=== PATIENT | female | born 1985 | race African-American/Black ===

== ENCOUNTER 2018-04-07 06:25 | Day surgery (SDC) | payer OTHER ==
[2018-04-01 14:20] LABS: Urine Appearance CLEAR; Urine Bilirubin NEGATIVE (NEG); Urine Blood NEGATIVE (NEG); Urine Color YELLOW; Urine Glucose NEGATIVE (NEG); Urine Protein NEGATIVE (NEG); Urine pH 6.5 (5.0-7.0)
[2018-04-01 14:25] LABS: Urine Microscopic Reflex NO UMIC
[2018-04-01 14:34] LABS: Absolute Lymphocytes (CBC) 1.5 K/uL (0.7-4.9); Absolute Monocytes 0.8 K/uL (0.1-1.3); Basophils % 1.4 % (0-1.3); Eosinophils % 11.5 % (0-4.4); Hematocrit 39.4 % (36.0-45.0); Lymphocytes % 24.7 % (15.3-44.8); MCH 32.5 pg (27.0-35.0); MCV 93.6 fL (80-100); MPV 9.8 fL (7.6-11.3); Monocytes % 12.9 % (3.3-12.3); RBC Red Blood Cell Count 4.21 M/uL (3.86-4.86)
[2018-04-07] MEDS ORDERED: Ringers Lactate 1,000 ML IV ONE ×2 (06:45→10:15)
[2018-04-07] MEDS ORDERED: SCOPOLAMINE HYDROBROMIDE PATCH TD ONE (06:45)
[2018-04-07 06:48] LABS: Specific Gravity >= 1.030 (1.005-1.030)
[2018-04-07] MEDS ORDERED: NA CHLORIDE 0.9% 1,000 ML ONE (07:10)
[2018-04-07] MEDS ORDERED: MIDAZOLAM HCL 2 MG/2 ML INJ ONE (07:10)
[2018-04-07] MEDS ORDERED: ROCURONIUM 50 MG/5 ML VIAL IV ONE (07:10)
[2018-04-07] MEDS ORDERED: FENTANYL CITR 250 MCG/5 ML ONE (07:10)
[2018-04-07] MEDS ORDERED: LIDOCAINE 2% MPF 5 ML VIAL ONE (07:10)
[2018-04-07] MEDS ORDERED: PROPOFOL 200 MG/20 ML VIAL IV ONE (07:10)
[2018-04-07] MEDS ORDERED: ONDANSETRON HCL 40 MG/20 ML VIAL ONE (07:13)
[2018-04-07] MEDS ORDERED: METHYLENE BLUE 0.5% 10 ML AMP ONE (08:59)
[2018-04-07] MEDS ORDERED: KETOROLAC 30 MG/ML INJ ONE (09:19)
[2018-04-07] MEDS ORDERED: Mastisol Adhesive Liq ONE (09:42)
[2018-04-07] MEDS: MEPERIDINE HCL 50 MG/ML AMP ONE ×6 (10:05→10:47)
[2018-04-07] MEDS ORDERED: ONDANSETRON 4 MG/2 ML VIAL ONE (11:19)
[2018-04-07] MEDS ORDERED: CODEINE 30MG/APAP 300MG TAB ONE ×2 (12:00→13:53)
--- NOTE | 2018-04-08 02:00 | OP ---
Date of Procedure: 04/07/2018 Surgeon: Madison Ellison MD Preoperative Diagnoses: Menorrhagia, dysmenorrhea, pelvic pain, and iron-deficiency anemia. Postoperative Diagnoses: Menorrhagia, dysmenorrhea, pelvic pain, iron-deficiency anemia, and bilater al tubo-ovarian adhesions. Anesthesia: General endotracheal. Procedures Performed: 1.Diagnostic hysteroscopy, dilation and curettage. 2.Diagnostic laparoscopy, bilateral salpingo-ovarian lysis, lysis of omental adhesions, and chromotu bation. Specimens: Tubo-ovarian adhesions on both sides and endometrial curettings. Complications: No complications. Drains: No drains. Patient's Condition: Stable. Findings: Uterus was anteflexed extremely. Cavity empty. Both tubal ostia were well visualized. N o intracavitary lesions. On chromotubation, both tubes appeared to be patent, and there were strong jets of blue dye from both promptly with a good fill and spill without any hydrosalpinx. There were bilateral tubo-ovarian adhesions, mostly dense adhesions, some filmy as well on the left s tiffanie from the ovary to the tube, from the ovary to the left pelvic sidewall, posterior broad ligament, and between the tube and the ovary. Then, on the right side, the tubo-ovarian adhesions were dense, fewer than on the left side, just mostly periovarian and between the ovary and the tube. There were several adhesions that were filmy on top of the uterus. These were cleared, and there were dense ad hesions of the bladder. There were dense adhesions of the omentum to the anterior abdominal wall. N o ovarian masses. The appendix appeared to be full, however, not inflamed. The liver and gallbladde r appeared to be unremarkable. All peritoneal surfaces were free of endometriosis. There was sinus in the posterior cul-de-sac without evidence of any endometriosis. No evidence of endometriosis unde r close examination of the entire pelvic cavity. Indications: The patient is a 32-year-old with all the complaints of heavy bleeding, cramping, and p elvic pain. She was evaluated with ultrasound. No clear abnormality was seen other than a small lef t ovarian cyst, which appeared to be physiological. She has had deliveries in the past x2. She desires to try to conceive pretty soon. Given the fact she has bleeding, that needs evaluation to rule out endometrial adenocarcinoma or atypia. Given that she has risk factors for this, she was consented for this. Then, diagnostic laparoscopy and chromotubation to check out and rule out any hy drosalpinges. If there is endometriosis present, then it would be excised, was discussed with the rick dugan. If there were adhesions, that they would be taken down. After she was consented for diagnost ic laparoscopy, possible endo treatment, and chromotubation, she was taken back to the OR. Description Of Procedure: After informed consent was verified, she was taken back to the OR, placed in a supine fashion on the operating table. After general anesthesia was given, she was placed in a dorsal lithotomy position. Both arms were tucked. The patient's legs placed in Garry stirrups. Pel valentina examination was performed. Uterus was anteflexed. No adnexal masses were seen. Abdomen, vulva, vagina, and perineum were prepped and draped in a sterile fashion. Hendrickson was placed to drain the bl adder and attached to a drainage bag. Speculum was placed to expose the cervix. Anterior lip was gr asped with 2 Allis clamps. Cervix was dilated at the external os with the tip of a hemostats; and us ing the SlimLine hysteroscope and normal saline as distention medium, direct hysteroscopy was perform ed with 30-degree lens in through the cervical canal and into the uterine cavity. The cavity appeare d to be empty. Both tubal ostia were well visualized. No intracavitary lesions. The scope was micha santhosh, and gentle curettage was performed. Then, the scope was replaced and thoroughly the irrigation and suction was conducted. Curettings were sent for permanent pathology. After the entire cavity wa s cleared out, then I was able to place the diagnostic VCare and fixed in place, and this area was dr escobar. A 1-cm infraumbilical incision in a semilunar fashion was placed in the area of the umbilical repair after the abdominoplasty. Then, subcutaneous tissues were incised sharply with a knife to get to the fascia. Fascia was incised in the vertical line. About 1-cm incision was made. Harry's were plac ed on each side. The fascia was . Stay sutures were placed with [address]-2 needle on each side. The peritoneum was picked up with 2 hemostats and incised with Metzenbaum scissors. The fingers were placed into the peritoneal cavity. Retractors were placed. Joaquin trocar was introduc ed under direct visualization. There were omental adhesions right inferior to the trocar placement. Site of entry was checked. No evidence of any injury to the bowel or the omentum. Upper abdominal s urface was completely unremarkable. Liver, gallbladder, stomach, and omental surfaces were all bella l. Then, a 5-mm left lower quadrant port was placed under direct vision after making a 5-mm incision on the skin with a 15-blade. We went on to place a trocar. Then, sharp scissors were used to take down the omental adhesions right at the level of the anterior abdominal wall without any significant bleeding. Once this was done, the end of the omental adhesion was checked. There was no need for an y additional hemostasis. So, went down to the pelvic cavity. A 5-mm suprapubic trocar was also plac ed under direct vision without any problems. Then, all the findings as dictated above were seen. Elmer th ureters were displaced anatomically in their locations in the pelvis. The lysis of adhesions was done with the help of sharp laparoscopic scissors. They were first picked up from the level of the o vary and then all the way to the left lateral wall. The lateral wall adhesion was cut at the level o f the lateral wall and the adhesion was cut very close to the surface opening up the ovarian surface which appeared to be covered with the adhesions. On the left side, these were all cleared up. The t ubo-ovarian adhesions were then cleared up, and they were excised, and they were handed out for perma nent pathology. There were filmy adhesions on top of the uterus, which were then taken down systemat ically with the help of the scissors at the very base. There were adhesions in the anterior cul-de-s ac that were taken down. No evidence of any endometriosis here either. On the right side, the ovary was picked up. The adhesions were taken down from the ovary to the tube. These were all cleared, a nd they were handed off for pathology. Thorough irrigation and suction of the pelvic cavity were don e about 5 times with the normal saline. The cul-de-sac sinus was well inspected with the help of 30- degree lens, and there was no evidence of any endometriosis inside it. At this point, the tubes were checked, and there was no evidence of any hydrosalpinges. They were nicely decompressed. Both of t hem were situated in a place where I could visualize the flow of the blue dye. Some methylene blue w as diluted, 10 mL in 50 cc, and 20 mL was injected through the VCare manipulator. There was an insta ntaneous fill without any distortions of the tube and spill through the fimbriated end of both tubes. The patency was confirmed. Thorough irrigation and suction were performed of the pelvic cavity. I nterceed was cut in half and wrapped around both ovaries to potentially prevent adhesions. Then, tro cars were removed. Gas was desufflated. Umbilical port was removed. The fascia was closed with the help of tag 0 Vicryl sutures. Good closure was obtained. All the skin incisions were closed with t he help of interrupted 4-0 Monocryl. The VCare as well as the Hendrickson were removed, and the patient wa s recovered from anesthesia. Instrument, needle, and sponge counts x3 were correct at the end of the case. She tolerated the procedure well, and she will follow up with me in 1 week. She was taken to the recovery in a stable condition. ZACKERY Voice ID: [id number] Report ID: [id number]
== END 2018-04-07 14:11 | disposition home or self-care (01) ==
LOC: OR 06:25
PROVIDERS: ATTEND Obstetrics & Gynecology
PROC: 0UDB7ZX Extraction of Endometrium, Via Natural or Artificial Opening, Diagnostic (ICD-10-PCS; 2018-04-07)
PROC: 0UJD8ZZ Inspection of Uterus and Cervix, Via Natural or Artificial Opening Endoscopic (ICD-10-PCS; 2018-04-07)
PROC: 0UN74ZZ Release Bilateral Fallopian Tubes, Percutaneous Endoscopic Approach (ICD-10-PCS; 2018-04-07)
PROC: 0DNU4ZZ Release Omentum, Percutaneous Endoscopic Approach (ICD-10-PCS; 2018-04-07)
PROC: 3E1P78X Irrigation of Female Reproductive using Irrigating Substance, Via Natural or Artificial Opening, Diagnostic (ICD-10-PCS; principal; 2018-04-07 07:30)
DX: N92.0 Excessive and frequent menstruation with regular cycle (principal); N94.6 Dysmenorrhea, unspecified; N73.6 Female pelvic peritoneal adhesions (postinfective); K66.0 Peritoneal adhesions (postprocedural) (postinfection); D50.9 Iron deficiency anemia, unspecified; Z88.6 Allergy status to analgesic agent; Z80.3 Family history of malignant neoplasm of breast; Z83.3 Family history of diabetes mellitus; Z82.49 Family history of ischemic heart disease and other diseases of the circulatory system
CPT/HCPCS: 36415; 81003; 81025; 85025; 86850; 86900; 86901; 88304; 88305; J2175; J2250; J2405; J7030

== ENCOUNTER 2022-01-28 18:19 | Emergency (ER) | payer SELFPAY ==
--- OUTSIDE RECORDS SUMMARY | 2022-01-28 18:21 | XMS REPORT | Continuity of Care Document ---
:1985 Author Organization [facility] t Address [address] [place] [address] Dr. Mackey [address] [place] [id number] Care Team Providers Name Role Phone Unavailable Unavailable Unavailable Problems This patient has no known problems. Allergies, Adverse Reactions, Alerts This patient has no known allergies or adverse reactions. Medications This patient has no known medications. Procedures This patient has no known procedures. Results This patient has no known results.
[2022-01-28] MEDS ORDERED: ONDANSETRON 4 MG (ODT) TAB ONE (19:48)
[2022-01-28] MEDS ORDERED: NA CHLORIDE 0.9% 1,000 ML ONE (20:12)
[2022-01-28 20:28] LABS: Urine Blood Negative (Negative); Urine Glucose Trace (Negative); Urine Protein 1+ (Negative); Urine Specific Gravity >=1.030 (1.005-1.030)
[2022-01-28 20:38] LABS: MCV 88.7 fL (80-100); RBC Red Blood Cell Count 4.74 M/uL (3.86-4.86)
[2022-01-28 20:56] LABS: Absolute Lymphocytes (CBC) 1.8 K/uL (0.7-4.9); Lymphocytes % 18.5 % (15.3-44.8); MPV 10.1 fL (7.6-11.3)
[2022-01-28 21:04] LABS: Albumin 4.3 g/dL (3.4-5.0); Bilirubin Total 0.8 mg/dL (0.2-1.0); Potassium 3.8 mmol/L (3.5-5.1); Protein, Total 10.2 g/dL (6.4-8.2)
[2022-01-28 21:47] LABS: Blood Morphology Comment NOT SEEN (NOT SEEN); Platelet Estimate ADEQ; White Blood Cell Scan OK (OK)
[2022-01-28] MEDS ORDERED: LIDOCAINE VISCOUS 2% SOLN 15 ML UDC ONE (22:51)
[2022-01-28] MEDS ORDERED: MAGNES/ALUMIN/SIMET 30ML UCUP ONE (22:51)
--- NOTE | 2022-01-28 23:15 | ER ---
Nurse's Notes [facility] Name: Sarah Barbour Age: 36 yrs Sex: Female : 1985 Arrival Date: 01/28/2022 Time: 18:21 Bed 13 Private MD: Garcia Simpson Diagnosis: Nausea with vomiting, unspecified Presentation: 01/28 19:37 Chief complaint: Patient states: NAUSEA AND VOMITING WITH HICCUPS ALL DAY, UNABLE TO bh1 KEEP ANYTHING DOWN. Coronavirus screen: Vaccine status: Patient reports receiving the 2nd dose of the covid vaccine. nausea, vomiting. Client presents with at least one sign or symptom that may indicate coronavirus-19. Standard/surgical mask placed on the client. Ebola Screen: Patient negative for fever greater than or equal to 101.5 degrees Fahrenheit, and additional compatible Ebola Virus Disease symptoms. Initial Sepsis Screen: Does the patient meet any 2 criteria? No. Patient's initial sepsis screen is negative. Does the patient have a suspected source of infection? No. Patient's initial sepsis screen is negative. Risk Assessment: Do you want to hurt yourself or someone else? Patient reports no desire to harm self or others. Onset of symptoms was January 28, 2022. 19:37 Method Of Arrival: Ambulatory [facility] 19:37 Acuity: SPARKLE 4 [facility] Triage Assessment: 19:39 General: Appears in no apparent distress. uncomfortable, Behavior is calm, cooperative, bh1 appropriate for age. Pain: Denies pain. GI: Reports nausea, vomiting. 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 - Social history:: Smoking status: Patient denies any tobacco usage or history of. Screenin:15 Abuse screen: Denies threats or abuse. Denies injuries from another. Nutritional eh3 screening: No deficits noted. Tuberculosis screening: No symptoms or risk factors identified. Fall Risk None identified. Assessment: 20:32 Reassessment: No changes from previously documented assessment. See triage assessment. eh3 General: Appears distressed, uncomfortable, Behavior is cooperative, appropriate for age. Pain: Complains of pain in abdomen Pain currently is 7 out of 10 on a pain scale. Quality of pain is described as aching, crampy, pressure, Pain began 2-3 days ago. Is continuous, Also complains of nausea. Neuro: Level of Consciousness is awake, alert, obeys commands, Oriented to person, place, time, situation. Cardiovascular: Capillary refill < 3 seconds Patient's skin is warm and dry. Respiratory: Airway is patent Respiratory effort is even, unlabored. GI: Abdomen is round non-distended, Reports lower abdominal pain, upper abdominal pain, cramping, gaseousness, intolerance of fluids, intolerance of food, nausea, vomiting. : No signs and/or symptoms were reported regarding the genitourinary system. EENT: No signs and/or symptoms were reported regarding the EENT system. Derm: No signs and/or symptoms reported regarding the dermatologic system. Musculoskeletal: No signs and/or symptoms reported regarding the musculoskeletal system. Vital Signs: 19:37 BP 104 / 72; Pulse 69; Resp 18; Temp 97.7(TE); Pulse Ox 100% on R/A; Weight 95.25 kg; bh1 Height 5 ft. 5 in. (165.10 cm); Pain 0/10; 20:15 BP 126 / 68; Pulse 63; Resp 20; Pulse Ox 100% on R/A; Pain 7/10; eh3 21:15 BP 115 / 75; Pulse 69; Resp 18; Pulse Ox 100% on R/A; eh3 22:15 BP 109 / 80; Pulse 62; Resp 18; Pulse Ox 100% on R/A; Pain 0/10; eh3 23:15 BP 105 / 73; Pulse 62; Resp 16; Pulse Ox 100% on R/A; eh3 19:37 Body Mass Index 34.95 (95.25 kg, 165.10 cm) [facility] ED Course: 18:21 Patient arrived in ED. mr 18:21 Garcia Simpson DO is Private Physician. mr 18:50 Amber Zur[facility]C [facility]. kb 18:50 oRbert Morales MD is Attending Physician. kb 19:39 Triage completed. [facility] 19:39 Arm band placed on right wrist. bh1 20:00 Isabel Armstrong is Primary Nurse. eh3 20:15 Patient has correct armband on for positive identification. Bed in low position. Call eh3 light in reach. Side rails up X2. Client placed on continuous cardiac and pulse oximetry monitoring. NIBP monitoring applied. Door closed. Noise minimized. Lights dimmed. Warm blanket given. Pillow given. 20:15 Inserted saline lock: 20 gauge in right antecubital area, using aseptic technique. eh3 Blood collected. 20:38 CBC with Diff Sent. eh3 20:38 CMP Sent. eh3 20:38 Lipase Sent. eh3 21:53 No provider procedures requiring assistance completed. eh3 23:35 IV discontinued, intact, bleeding controlled, No redness/swelling at site. Pressure eh3 dressing applied. Administered Medications: 19:41 Drug: Ondansetron 4 mg Route: PO; 1 20:20 Drug: NS 0.9% 1000 ml Route: IV; Rate: 1 bolus; Site: right antecubital; eh3 23:07 Follow up: IV Intake: 1000ml eh3 23:36 Follow up: Response: No adverse reaction; IV Intake: 1000ml eh3 22:48 Drug: GI Cocktail without - (Maalox Suspension 30 ml, Lidocaine Liquid 2 % 15 eh3 ml) Route: PO; 23:07 Follow up: Response: Nausea is increased; Vomiting increased eh3 23:17 Drug: Zofran (Ondansetron) 4 mg Route: IVP; Site: right antecubital; eh3 23:35 Follow up: Response: No adverse reaction eh3 Medication: 21:53 VIS not applicable for this client. eh3 Intake: 23:07 IV: 1000ml; Total: 1000ml. eh3 23:36 IV: 1000ml; Total: 2000ml. eh3 Outcome: 23:14 Discharge ordered by . jesus 23:36 Discharged to home ambulatory. eh3 23:36 Condition: stable 23:36 Discharge instructions given to patient, Instructed on discharge instructions, follow up and referral plans. medication usage, Demonstrated understanding of instructions, follow-up care, medications, Prescriptions given X 1. 23:37 Patient left the ED. eh3 Signatures: Amber Zurita, MONET-C AGRICULTURE SCIENCE TEACHER-Ckchris De La FuenteaSamantha Isabel Duvall eh3 Dinorah Staton RN RN bh1
--- NOTE | 2022-01-28 23:15 | EDPHYS ---
Physician Documentation [facility] Name: Sarah Barbour Age: 36 yrs Sex: Female : 1985 Arrival Date: 01/28/2022 Time: 18:21 Bed 13 Private MD: [facility] ED Physician Robert Morales HPI: 01/28 23:12 This 36 yrs old Black Female presents to ER via Ambulatory with complaints of Vomiting. kb 23:12 The patient presents to the emergency department with nausea, vomiting. Onset: The kb symptoms/episode began/occurred 5 day(s) ago. Possible causes: unknown. The symptoms are aggravated by nothing. The symptoms are alleviated by nothing. Associated signs and symptoms: Pertinent positives: nausea, vomiting, Hiccups. Severity of symptoms: At their worst the symptoms were moderate in the emergency department the symptoms are unchanged. The patient has not experienced similar symptoms in the past. The patient has not recently seen a physician. Patient reports nausea and vomiting since with intermittent hiccups. Denies fever chills body aches. Denies abdominal pain, diarrhea. States she came in today because she is unable to tolerate p.o. intake.. 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 - Social history:: Smoking status: Patient denies any tobacco usage or history of. ROS: 23:11 Constitutional: Negative for fever, chills, and weight loss. kb 23:11 Abdomen/GI: Positive for nausea and vomiting, Negative for abdominal pain, diarrhea. 23:11 All other systems are negative. Exam: 23:11 Constitutional: This is a well developed, well nourished patient who is awake, alert, kb and in no acute distress. Head/Face: Normocephalic, atraumatic. ENT: Moist Mucous membranes Cardiovascular: Regular rate and rhythm with a normal S1 and S2. No gallops, murmurs, or rubs. No pulse deficits. Respiratory: Respirations even and unlabored. No increased work of breathing. Talking in full sentences Abdomen/GI: Soft, non-tender. No distention Skin: Warm, dry with normal turgor. Normal color. MS/ Extremity: Pulses equal, no cyanosis. Neurovascular intact. Full, normal range of motion. Neuro: Awake and alert, GCS 15, oriented to person, place, time, and situation. Moves all extremities. Normal gait. Psych: Awake, alert, with orientation to person, place and time. Behavior, mood, and affect are within normal limits. Vital Signs: 19:37 BP 104 / 72; Pulse 69; Resp 18; Temp 97.7(TE); Pulse Ox 100% on R/A; Weight 95.25 kg; 1 Height 5 ft. 5 in. (165.10 cm); Pain 0/10; 20:15 BP 126 / 68; Pulse 63; Resp 20; Pulse Ox 100% on R/A; Pain 7/10; eh3 21:15 BP 115 / 75; Pulse 69; Resp 18; Pulse Ox 100% on R/A; eh3 22:15 BP 109 / 80; Pulse 62; Resp 18; Pulse Ox 100% on R/A; Pain 0/10; eh3 23:15 BP 105 / 73; Pulse 62; Resp 16; Pulse Ox 100% on R/A; eh3 19:37 Body Mass Index 34.95 (95.25 kg, 165.10 cm) [facility] MDM: 19:44 Patient medically screened. kb 23:10 Data reviewed: vital signs, nurses notes. Data interpreted: Pulse oximetry: on room air kb is 100 %. Interpretation: normal. Counseling: I had a detailed discussion with the patient and/or guardian regarding: the historical points, exam findings, and any diagnostic results supporting the discharge/admit diagnosis, lab results, the need for outpatient follow up, a family practitioner, to return to the emergency department if symptoms worsen or persist or if there are any questions or concerns that arise at home. ED course: Patient tolerated p.o. intake. Patient reports decreased nausea after treatment. Hiccups resolved. No abdominal tenderness upon exam.. 01/28 19:45 Order name: CBC with Diff; Complete Time: 22:00 kb 01/28 19:45 Order name: CMP; Complete Time: 21:14 kb 01/28 19:45 Order name: Lipase; Complete Time: 21:14 kb 01/28 20:28 Order name: Urine Dipstick-Ancillary; Complete Time: 20:33 EDMS 01/28 21:47 Order name: CBC Smear Scan; Complete Time: 22:00 EDMS 01/28 19:45 Order name: IV Saline Lock; Complete Time: 20:38 kb 01/28 19:45 Order name: Labs collected and sent; Complete Time: 20:38 kb 01/28 19:45 Order name: Urine Dipstick-Ancillary (obtain specimen); Complete Time: 20:30 kb 01/28 19:45 Order name: Urine Test (obtain specimen); Complete Time: 20:30 kb 01/28 22:00 Order name: PO challenge; Complete Time: 22:38 kb Administered Medications: 19:41 Drug: Ondansetron 4 mg Route: PO; bh1 20:20 Drug: NS 0.9% 1000 ml Route: IV; Rate: 1 bolus; Site: right antecubital; eh3 23:07 Follow up: IV Intake: 1000ml eh3 23:36 Follow up: Response: No adverse reaction; IV Intake: 1000ml eh3 22:48 Drug: GI Cocktail without - (Maalox Suspension 30 ml, Lidocaine Liquid 2 % 15 eh3 ml) Route: PO; 23:07 Follow up: Response: Nausea is increased; Vomiting increased eh3 23:17 Drug: Zofran (Ondansetron) 4 mg Route: IVP; Site: right antecubital; eh3 23:35 Follow up: Response: No adverse reaction eh3 Disposition Summary: 01/28/22 23:14 Discharge Ordered Location: Home kb Condition: Stable kb Diagnosis - Nausea with vomiting, unspecified kb Followup: kb - With: Emergency Department - When: As needed - Reason: Worsening of condition Followup: kb - With: Private Physician - When: 2 - 3 days - Reason: Recheck today's complaints, Continuance of care, Re-evaluation by your physician Discharge Instructions: - Discharge Summary Sheet kb - Nausea and Vomiting, Adult, [id number] kb Forms: - Medication Reconciliation Form kb - Thank You Letter kb - Antibiotic Education kb - Prescription Opioid Use kb Prescriptions: - ondansetron 4 mg Oral tablet,disintegrating - place 1 tablet by TRANSLINGUAL route every 6 hours As needed; 12 tablet; kb Refills: 0, Product Selection Permitted Signatures: Dispatcher [employer] EDMS Amber Zurita, MONET-C Daya Burr, RN RN ld1 Isabel Armstrong 3 Dinorah Staton RN RN bh1 Corrections: (The following items were deleted from the chart) 23:11 23:10 ED course: Patient tolerated p.o. intake. Patient reports decreased nausea after kb treatment. Hiccups resolved.. kb
[2022-01-28] MEDS ORDERED: ONDANSETRON 4 MG/2 ML VIAL ONE (23:22)
[2022-01-29 00:22] VITALS: TEMP 97.7; O2SAT 100
[2022-01-29 00:32] VITALS: BP 105/73
== END 2022-01-28 23:37 | disposition home or self-care (01) ==
LOC: ER 18:19
DX: R11.2 Nausea with vomiting, unspecified (principal)
CPT/HCPCS: 36415; 80053; 81003; 83690; 85025; 96374; 99284; J2405; J7030; Q0162

== ENCOUNTER 2022-05-06 08:19 | Emergency (ER) | payer SELFPAY ==
--- OUTSIDE RECORDS SUMMARY | 2022-05-06 08:33 | XMS REPORT | Continuity of Care Document ---
:1985 Author Organization [facility] t Address [address] [place] [place] [address] Care Team Providers Name Role Phone Garcia Simpson Primary Care Physician Garcia Simpson Attending Clinician Unavailable CAROLIN BOLIVAR Attending Clinician Unavailable Monserrat Barkley RN Attending Clinician Unavailable DEWAYNE HENRY Attending Clinician Unavailable Lola Gary Attending Clinician Alfred Carmen DO Attending Clinician Dewayne Henry MD Attending Clinician NICO LONGORIA Attending Clinician Unavailable Nico Longoria MD Attending Clinician DEWAYNE HENRY Admitting Clinician Unavailable Dewayne Henry MD Admitting Clinician NICO LONGORIA Admitting Clinician Unavailable Problems Condition Condition Condition Status Onset Resolution Last Treating Co mments Source Name Details Category Date Date Treatment Clinician Date Intractabl Intractabl Disease Active U nivers e vomiting e vomiting 7-30 it y of with with 00:00: [place] nausea, nausea, 00 Medical unspecifie unspecifie Br anch d vomiting d vomiting type type Obesity Obesity Disease Active Univers (BMI (BMI 7-30 ity of 30-39.9) 30-39.9) 00:00: [place] [address] Medical Branch No known No known Disease Unive rs active active ity of problems problems [facility] Allergies, Adverse Reactions, Alerts Allergy Allergy Status Severity Reaction(s) Onset Inactive Treating Comm ents Source Name Type Date Date Clinician NO KNOWN Drug Active Univers ALLERGIE Class ity of S [facility] Social History Social Habit Start Date Stop Date Quantity Comments Source History of Passive smoker University of tobacco use [facility] Exposure to 2022-01-23 2022-02-02 Not sure [facility] SARS-CoV-2 00:00:00 19:49:00 [facility] [place] (event) [place] Tobacco use and 2022-02-02 2022-02-02 Smokeless tobacco Un iversity of exposure 00:00:00 00:00:00 non-user [facility] Education 2022-02-02 2022-02-02 21 University of 00:00:00 00:00:00 [facility] Sex Ass[birth year] At [birth year] Universit y of 00:00:00 00:00:00 [facility] Smoking Status Start Date Stop Date Source Tobacco [facility] Never smoked tobacco [facility] Medications Ordered Filled Start Stop Current Ordering Indication Dosage Frequency Signature Comments Components Source Medication Medication Date Date Medication? Clinician (SIG) Name Name polyethylen 2021- Yes [id number] 17g Take 1 Univers e glycol 02-08 Packet by ity o f 3350 17 00:00: 04:59 mouth in [place] gram powder 00 :[address] [facility] for 15 days. polyethylen 2021- Yes [id number] 17g Take 1 Univers e glycol 02-08 Packet by ity o f 3350 17 00:00: 04:59 mouth in [place] gram powder 00 :00 the [facility] morning [place] for 15 days. potassium 2021- No 10meq 10 mEq, IV Univers chloride in 02-07 Piggyback, i ty of water 10 18:30: 18:30 ONCE, 1 [place] mEq/100 mL 00 :00 dose, On Medic al RTU 10 mEq Patt 02/07/22 [facility] at 1330, Administer over 60 Minutes, 100 mL potassium 2021- No 10meq 10 mEq, IV Univers chloride in 02-07 Piggyback, i ty of water 10 13:00: 17:15 Q1H, 4 [place] mEq/100 mL 00 :10 doses, Medical RTU 10 mEq First dose Bra nch on Fri02/07/22 at 0800, Last dose on Fri02/07/22 at 1100, Administer over 60 Minutes, 100 mL chlorproMAZ Yes [id number] 25mg Take 1 Univers INE 25 mg 8-04 tablet by ity o f tablet 00:00: mouth 3 [place] 00 (three) Medical times Branch daily as needed (hiccups). proMETHazin Yes [id number] 25mg Take 1 Univers e 25 mg 8-04 tablet by ity of tablet 00:00: mouth [place] 00 every 4 Medical (four) Branch hours as needed for N/V unresponsi ve to Ondansetro n. chlorproMAZ Yes [id number] 25mg Take 1 Univers INE 25 mg 8-04 tablet by ity o f tablet 00:00: mouth 3 [place] 00 (three) Medical times Branch daily as needed (hiccups). proMETHazin Yes [id number] 25mg Take 1 Univers e 25 mg 8-04 tablet by ity of tablet 00:00: mouth [place] 00 every 4 Medical (four) Branch hours as needed for N/V unresponsi ve to Ondansetro n. KCL 2021- No 40meq 40 mEq, Univers (KLOR-CON 02-06 Oral, ity of M20) tablet 15:15: 15:44 ONCE, 1 [place] 40 mEq 00 :00 dose, On Medical Fri02/06/22 Branch at 1015, Routine polyethylen Yes 17g 17 g, Unive rs e glycol 02-06 Oral, ity of 3350 powder 14:45: DAILY, [place] 17 g 00 First dose Medical on Fri Branch 02/06/22 at 0945, Until Discontinu ed, Routine KCL 2021- No 40meq 40 mEq, Univers (KLOR-CON 02-05 Oral, ity of M20) tablet 14:30: 14:32 ONCE, 1 [place] 40 mEq 00 :00 dose, On Medical 02/05/22 Branch at 0930, Routine lactated 2021- No 1000mL at 150 Univ ers ringers IV 02-03 08-03 mL/hr, ity of infusion 15:00: 14:12 1,000 mL, [place] as 1,000 mL 00 :59 IV Medical Infusion, Branch CONTINUOUS , Starting on [place] 02/03/22 at 1000, Until Fri02/06/22 at 0912, Routine enoxaparin Yes 40mg 40 mg, Unive rs (LOVENOX) 02-03 Subcutaneo ity of injection 14:00: [place], [place]ILY, [place] 40 mg 00 First dose Medical on [facility] 02/03/22 at 0900, Until Discontinu ed, Routine chlorproMAZ Yes 25mg 25 mg, Univ ers INE 02-03 Oral, ity of (THORAZINE) 13:31: TIDPRN, [place] tablet 25 13 Starting Medica l mg on [facility] 02/03/22 at 0831, Until Discontinu ed, Routine, hiccups proMETHazin 2021- No 12.5mg 12.5 mg, Univers e 02-03 IV ity of (PHENERGAN) 03:36: 13:39 Piggyback, [place] 12.5 mg in 13 :00 Q4HPRN, Medica l NaCl 0.9% Starting Branch (NS) 50 mL on [facility] IV 02/02/22 at piggyback 2236, Until [place] 02/03/22 at 0839, Routine, N/V unresponsi ve to Ondansetro n NaCl 0.9% 2021- No 1000mL at 125 Uni vers (NS) IV 02-03 0731 mL/hr, IV ity of infusion 03:15: 13:46 Infusion, [place] 1,000 mL 00 :19 CONTINUOUS Medic al , Starting Branch on [facility] 02/02/22 at 2215, Until [place] 02/03/22 at 0846, Routine ondansetron Yes 4mg 4 mg, Slow Univers (ZOFRAN 02-03 IV Push, ity of (PF)) 03:04: Q6HPRN, [place] injection 4 27 Starting Medi maikel mg on Sat Branch 02/02/22 at 2204, Until Discontinu ed, Routine, Nausea and Vomiting (N/V) HYDROcodone Yes 1{tbl} 1 tablet, Univers -acetaminop 02-03 Oral, ity of hen (NORCO) 03:04: Q6HPRN, [place] 10-325 mg 22 Starting Medica l tablet 1 on Sat Branch tablet 02/02/22 at 2204, Until Discontinu ed, Routine, Pain (scale 7-10) acetaminoph Yes 650mg 650 mg, Un dima en 02-03 Oral, ity of (TYLENOL) 03:04: Q6HPRN, [place] tablet 650 16 Starting Medic al mg on Sat Branch 02/02/22 at 2204, Until Discontinu ed, Routine, Pain (scale 1-3) NaCl 0.9% 2021- No 1000mL at 999 Uni vers (NS) bolus 02-02 mL/hr, ity of infusion 23:30: 00:27 1,000 mL, [place] 1,000 mL 00 :00 IV Medical Infusion, Branch ONCE, 1 dose, On 02/02/22 at 1830, STAT haloperidol 2021- No 2.5mg 2.5 mg, U nivers lactate 02-02 Intravenou ity o f (HALDOL) 22:30: 22:36 s, ONCE, 1 [place] injection 00 :00 dose, On Medica l 2.5 mg [facility] Branch 02/02/22 at 1730, STAT famotidine 2021- No 20mg 20 mg, Univ ers (PEPCID 02-02 Slow IV ity of (PF)) 22:30: 22:37 Push, [place] injection 00 :00 ONCE, 1 Medical 20 mg dose, On Branch 02/02/22 at 1730, MARYANNE iopamidol 2021- No [id number] 60mL 60 mL, U nivers (ISOVUE 01-30 Intravenou ity o f 370-500 mL) 03:15: 03:15 s, ONCE, 1 [place] injection 00 :00 dose, On Medica l 60 mL Tue Branch 01/29/22 at 2230, Routine NaCl 0.9% 2021- No 1000mL at 999 Uni vers (NS) bolus 01-30 mL/hr, ity of infusion 03:15: 04:37 1,000 mL, [place] 1,000 mL 00 :00 IV Medical Infusion, Branch ONCE, 1 dose, On Fri01/29/22 at 2215, STAT proMETHazin 2021- No 25mg 25 mg, IV Univers e 01-30 Piggyback, ity of (PHENERGAN) 03:15: 03:06 ONCE, 1 [place] 25 mg in 00 :00 dose, On Medical NaCl 0.9% Fri Branch (NS) 50 mL 01/29/22 at IV 2215, MARYANNE piggyback pantoprazol 2021- No 40mg 40 mg, Uni vers e 01-30 Slow IV ity of (PROTONIX) 02:15: 02:16 Push, [place] injection 00 :00 ONCE, 1 Medical 40 mg dose, On Branch e 01/29/22 at 2115 maalox:diph 2021- No 15mL 15 mL, Uni vers enhydrAMINE 01-30 Oral, ity of :lidocaine 02:15: 02:17 ONCE, 1 [place] 2 % viscous 00 :00 dose, On Medi maikel 1:1:1 Tue Branch (FIRST-MOUT 01/29/22 at [facility]) 2114, oral Routine suspension 15 mL ondansetron 2021- No 4mg 4 mg, Slow Univers (ZOFRAN 01-30 IV Push, ity of (PF)) 02:15: 02:17 ONCE, 1 [place] injection 4 00 :00 dose, On Medi maikel mg e Branch 01/29/22 at 2115, MARYANNE dicyclomine 2021-0 Yes [id number] 20mg Take 1 Univers 20 mg 7-26 tablet by ity of tablet 00:00: mouth [place] 00 every 6 Medical (six) Branch hours as needed for Abdominal pain. pantoprazol 2021-0 Yes [id number] 40mg Take 1 Univers e 7-26 tablet by ity of (PROTONIX) 00:00: mouth in [place] 40 mg EC 00 the Medical tablet morning. Branch proMETHazin Yes [id number] 25mg Take 1 Univers e 25 mg 7-26 tablet by ity of tablet 00:00: mouth [place] 00 every 6 Medical (six) Branch hours as needed for N/V unresponsi ve to Ondansetro n. dicyclomine 2021- No [id number] 20mg Take 1 Univers 20 mg 7-26 07-30 tablet by ity of tablet 00:00: 00:00 mouth [place] 00 :00 every 6 Medical (six) Branch hours as needed for Abdominal pain. pantoprazol 2021- No [id number] 40mg Take 1 Univers e 7-26 07-30 tablet by ity of (PROTONIX) 00:00: 00:00 mouth [place] 40 mg EC 00 :00 the Medical tablet morning. Branch proMETHazin 2021- No [id number] 25mg Take 1 Univers e 25 mg 7-26 07-30 tablet by ity of tablet 00:00: 00:00 mouth [place] 00 :00 every 6 Medical (six) Branch hours as needed for N/V unresponsi ve to Ondansetro n. acetaminoph Yes [id number] 1{tbl} Take 1 Univers en-codeine 1-08 tablet by ity of 300-30 mg 00:00: mouth [place] tablet 00 every 4 Medical (four) Branch hours as needed for Pain (scale 7-10). ondansetron Yes [id number] 4mg Take 1 Univers 4 mg 1-08 tablet by ity of disintegrat 00:00: mouth [place] ing tablet 00 every 8 Medica l (eight) Branch hours as needed for Nausea and Vomiting (N/V). acetaminoph 2021- No [id number] 1{tbl} Take 1 Univers en-codeine 1-08 07-30 tablet by ity of 300-30 mg 00:00: 00:00 mouth [place] tablet 00 :00 every 4 Medical (four) Branch hours as needed for Pain (scale 7-10). ondansetron 2021- No [id number] 4mg Take 1 Univers 4 mg 1-08 07-30 tablet by ity of disintegrat 00:00: 00:00 [place] tablet 00 :00 every 8 Medica l (eight) Branch hours as needed for Nausea and Vomiting (N/V). Immunizations Ordered Filled Immunization Date Status Comments Sour e Immunization Name Name SARS-COV-2 COVID-19 2020-11-26 Completed Unive rsity of MODERNA VACCINE 00:00:00 [place] Med ical Branch SARS-COV-2 COVID-19 2020-11-26 Completed Unive rsity of MODERNA VACCINE 00:00:00 [facility] ical Branch SARS-COV-2 COVID-19 2020-10-27 Completed Unive rsity of MODERNA VACCINE 00:00:00 [facility] ical Branch SARS-COV-2 COVID-19 2020-10-27 Completed Unive rsity of MODERNA VACCINE 00:00:00 [facility] Vital Signs Vital Name Observation Time Observation Value Comments Source Systolic blood 2022-02-07 16:11:00 110 mm[Hg] Univer sity of pressure [facility] Diastolic blood 2022-02-07 16:11:00 68 mm[Hg] Unive rsity of pressure [facility] Heart rate 2022-02-07 16:11:00 71 /min [facility] Body temperature 2022-02-07 16:11:[address] Respiratory rate 2022-02-07 16:11:00 16 /min [facility] Oxygen saturation in 2022-02-07 16:11:00 98 /min [facility] Arterial blood by [facility] [place] [facility] Pulse oximetry Branch Body weight 2022-02-07 08:20:00 89.495 kg [facility] BMI 2022-02-07 08:20:00 32.83 kg/m2 [facility] Body height 2022-02-03 00:53:00 165.1 cm [facility] Diastolic blood 2022-01-30 04:33:00 90 mm[Hg] Unive rsity of pressure [facility] Heart rate 2022-01-30 04:33:00 71 /min [facility] Respiratory rate 2022-01-30 04:33:00 16 /min [facility] Oxygen saturation in 2022-01-30 04:33:00 100 /min University of Arterial blood by [facility] [place] [facility] Pulse oximetry Branch Systolic blood 2022-01-30 04:33:00 140 mm[Hg] [facility] of pressure [facility] Body temperature 2022-01-30 01:31:00 36.72 Tiesha [facility] Body height 2022-01-30 01:31:00 165.1 cm [facility] Body weight 2022-01-30 01:31:00 95.255 kg [facility] BMI 2022-01-30 01:31:00 34.95 kg/m2 [facility] Procedures Procedure Date / Time Performing Clinician Source Performed LIPASE 2022-02-07 09:49:[address] [facility] BASIC METABOLIC PANEL 2022-02-07 09:49:00 Pavel Obrien [facility] (NA, K, CL, CO2, GLUCOSE, Medica l Branch BUN, CREATININE, CA) CBC WITH DIFF 2022-02-07 09:49:[address] [facility] BASIC METABOLIC PANEL 2022-02-06 07:52:00 Lola Carroll [facility] (NA, K, CL, CO2, GLUCOSE, Medica l Branch BUN, CREATININE, CA) LIPASE 2022-02-05 09:31:00 Lola Carroll [facility] BASIC METABOLIC PANEL 2022-02-05 09:31:00 Lola Carroll [facility] (NA, K, CL, CO2, GLUCOSE, Medica l Branch BUN, CREATININE, CA) CBC WITH DIFF 2022-02-05 09:31:00 Lola Carroll [facility] US ABDOMEN COMPLETE 2022-02-05 03:46:00 Pavel Obrien [facility] LIPASE 2022-02-04 16:06:00 Carl [facility] MAGNESIUM 2022-02-04 16:06:00 [facility] HEPATIC FUNCTION PANEL 2022-02-04 16:06:00 [facility] ([id number] (ALB,T.PRO,BILI Medical Branch T,BU/BC,ALT,AST,ALK PHOS) BASIC METABOLIC PANEL 2022-02-04 16:06[facility]00 [facility] (NA, K, CL, CO2, GLUCOSE, Medica l Branch BUN, CREATININE, CA) CBC WITH DIFF 2022-02-04 16:06:00 [facility]OLIC PANEL 2022-02-03 09:59:00 [facility] (NA, K, CL, CO2, GLUCOSE, Medica l Branch BUN, CREATININE, CA) LIPID PANEL ([id number])(TOTAL 2022-02-03 09:59:00 [facility] CHOLESTEROL, [facility] TRIGLYCERIDES, HDL) CBC WITH DIFF 2022-02-03 09:59:00 [facility] COVID-19 (ID NOW RAPID 2022-02-02 23:40:00 Lola Hendrickson [facility] TESTING) Medical Branch LAB ONLY COVID 2022-02-02 23:40:00 Lola Hendrickson [facility] INTERPRETATION Medical Branch LIPASE 2022-02-02 22:39:00 Lola [facility] COMP. METABOLIC PANEL 2022-02-02 22:39:00 Lola Hendrickson [facility] ([id number]) Medical Branch CBC WITH DIFF 2022-02-02 22:39:00 Lola Hendrickson [facility] NOTICE OF PRIVACY 2022-02-02 22:00:56 Doctor Marcela, [facility] PRACTICES [place] [facility] CONSENT/REFUSAL FOR 2022-02-02 22:00:44 Doctor Marcela [facility] DIAGNOSIS AND TREATMENT [place] [facility] CONSENT/REFUSAL FOR 2022-02-02 21:44:43 Doctor Marcela [facility] DIAGNOSIS AND TREATMENT [place] [facility] CT ABDOMEN PELVIS W 2022-01-30 03:21:00 Nico Longoria [facility] CONTRAST Medical Branch POCT TEST 2022-01-30 02:26:00 Nico Longoria [facility] LIPASE 2022-01-30 02:16:[address] [facility] COMP. METABOLIC PANEL 2022-01-30 02:16:00 Nico Longoria [facility] ([id number]) [facility] CBC WITH DIFF 2022-01-30 02:16:[address] [facility] URINALYSIS 2022-01-30 02:16:[address] [facility] COVID-19 (ID NOW RAPID 2022-01-30 02:16:00 Nico Longoria [facility] TESTING) [facility] Encounters Start End Encounter Admission Attending Care Care Encounter Source Date/Time Date/Time Type Type Clinicians Facility Department ID 2022-04-18 [facility] [id number] Common 15:48:03 [facility] 2022-04-15 Outpatient Simpson, [facility]MLC [facility] [id number] Common 08:13:02 [facility] [id number] [facility] 2022-03-19 Outpatient Simpson, STLC [facility] [id number] Common 13:19:04 [facility] 2022-02-13 2022-02-13 Emergency E OSMEL, MHBL MED [id number] BL 16:06:00 23:05:00 SAB 2022-02-08 2022-02-08 Transition [facility] [place] [id number] Univers 00:00:00 00:00:00 of Care Monserrat LEVINE [id number] i ty of [id number] [address] Branch 2022-02-02 2022-02-07 Inpatient X CARL [facility] [id number] Univers 16:46:00 17:30:[address] [facility] 2022-02-02 2022-02-07 Hospital Lola Hendrickson [facility] [id number] Univers 16:46:00 17:30:00 Encounter Alfred Carmen [id number] ity Dewayne Delarosa 4.2.7.2.686 [facility] [id number] [place] [address]34[address] Branch 2022-01-29 2022-01-29 Emergency X [facility] ERT [id number] Univers 20:35:00 23:37:[facility] 2022-01-[address] [facility] [id number] Univers 20:35:00 23:37:00 Nico SHEPPARD [id number] ity suni MARQUES 4.2.7.2.686 [facility] [id number] [address] Results Test Description Test Time Test Comments Results Result Comments Source BASIC METABOLIC PANEL (NA, K, CL, CO2, GLUCOSE, BUN, 2022-02 12:12:35 CREATININE, CA) Test Item Value Reference Range Interpretation Comme nts NA (test code = 6879847758) 135 mmol/L 135-145 K (test code = 2152142151) 3.3 mmol/L 3.5-5 L CL (test code = 9826082554) 101 mmol/L 98-108 CO2 TOTAL (test code = 2957788472) 24 mmol/L 23-31 AGAP (test code = 8511254397) 2-16 BUN (test code = 0840006845) 5 mg/dL 7-23 L GLUCOSE (test code = 3112710495) 103 mg/dL 70-110 CREATININE (test code = 0.69 mg/dL 0.5-1.04 8323631235) CALCIUM (test code = 7465096067) 8.5 mg/dL 8.6-10.6 L eGFR (test code = 5211665492) mL/min/1.73m2 MICHAEL (test code = MICHAEL) Association of Glomerular Filtration Rate (GFR) and Staging of Kidney Disease* + +-------- + ------+| GFR (mL/min/1.73 m2) ?| With Kidney Damage ?| ?Without Kidney Damage+ +-- + +| ?>90 ?| ?Stage one ?| ? Normal ?+ +------- + -------+| ?60-89 ?| ?Stage two ?| ? Decreased GFR ? + +-------- + ------+| ?30-59 ?| ?Stage three ?| ? Stage three ? + +-------- + ------+| ?15-29 ?| ?Stage four ? | ? Stage four ?+ +------- + -------+| ?<15 (or dialysis) ? ?| ?Stage five ? | ? Stage five ?+ +------- + -------+ *Each stage assumes the associated GFR level has been in effect for at least three months. ?Stages 1 to 5, with or without kidney disease, indicate chronic kidney disease. Notes: Determination of stages one and two (with eGFR >59mL/min/1.73 m2) requires estimation of kidney damage for at least three months as defined by structural or functional abnormalities of the kidney, manifested by either:Pathological abnormalities or Markers of kidney damage (including abnormalities in the composition of the blood or urine or abnormalities in imaging tests). Lab Interpretation (test code = Abnormal 66760-1) [facility] 12:11:55 Test Item Value Reference Range Interpretation Comments LIPASE (test code = 2943235155) 600 U/L 0-220 H Lab Interpretation (test code = Abnormal 37629-4) [facility] WITH [id number] 09:57:01 Test Item Value Reference Range Interpretation Comments WBC (test code = See_Comment [Automated 6590-2) message] The sy stem which generated this result transmitted reference range : 4.30 - 11.10 10*3/?L. The reference range was not used to interpret this result as normal/abnormal . RBC (test code = See_Comment L [Automated 289-8) message] The sy stem which generated this result transmitted reference range : 3.93 - 5.25 10*6/?L. The reference range was not used to interpret this result as normal/abnormal . HGB (test code = 11.0 g/dL 11.6-15 L 718-7) HCT (test code = 31.6 % 35.7-45.2 L 4544-3) MCV (test code = 85.4 fL 80.6-95.5 787-2) MCH (test code = 29.7 pg 25.9-32.8 785-6) MCHC (test code = 34.8 g/dL 31.6-35.1 786-4) RDW-SD (test code = 39.3 fL 39-49.9 97993-1) RDW-CV (test code = 12.7 % 12-15.5 788-0) PLT (test code = See_Comment L [Automated 777-3) message] The sy stem which generated this result transmitted reference range : 166 - 358 10*3/ ?L. The reference r vishal was not used to interpret this result as normal/abnormal . MPV (test code = 11.9 fL 9.5-12.9 33781-9) NRBC/100 WBC (test See_Comment [Automat ed code = 5447967383) message] The system which generated this result transmitted reference range : 0.0 - 10.0 /100 WBCs. The refer ence range was not u sed to interpret th is result as normal/abnormal . NRBC x10^3 (test code See_Comment [Auto mated = 1308411251) message] The s ystem which generated this result transmitted reference range : 10*3/?L. The reference range was not used to interpret this result as normal/abnormal . GRAN MAT (NEUT) % 53.1 % (test code = 770-8) IMM GRAN % (test code 0.30 % = 6143461434) LYMPH % (test code = 28.1 % 736-9) MONO % (test code = 16.3 % 5905-5) EOS % (test code = 1.4 % 713-8) BASO % (test code = 0.8 % 706-2) GRAN MAT x10^3(ANC) 3.51 10*3/uL 1.88-7.09 (test code = 5779336552) IMM GRAN x10^3 (test 0-0.06 code = 6574526348) LYMPH x10^3 (test code 1.86 10*3/uL 1.32-3.29 = 731-0) MONO x10^3 (test code 1.08 10*3/uL 0.33-0.92 H = 742-7) EOS x10^3 (test code = 0.09 10*3/uL 0.03-0.39 711-2) BASO x10^3 (test code 0.05 10*3/uL 0.01-0.07 = 704-7) Lab Interpretation Abnormal (test code = 77079-6) General acute hospital WITH [id number] 17:46:52 Test Item Value Reference Range Interpretation Comments WBC (test code = See_Comment [Automated 6690-2) message] The sy stem which generated this result transmitted reference range : 4.30 - 11.10 10*3/?L. The reference range was not used to interpret this result as normal/abnormal . RBC (test code = See_Comment [Automated 789-8) message] The sy stem which generated this result transmitted reference range : 3.93 - 5.25 10*6/?L. The reference range was not used to interpret this result as normal/abnormal . HGB (test code = 12.2 g/dL 11.6-15 718-7) HCT (test code = 34.0 % 35.7-45.2 L 4544-3) MCV (test code = 84.4 fL 80.6-95.5 787-2) MCH (test code = 30.3 pg 25.9-32.8 785-6) MCHC (test code = 35.9 g/dL 31.6-35.1 H 786-4) RDW-SD (test code = 39.1 fL 39-49.9 20794-4) RDW-CV (test code = 12.8 % 12-15.5 788-0) PLT (test code = See_Comment [Automated 777-3) message] The sy stem which generated this result transmitted reference range : 166 - 358 10*3/ ?L. The reference r vishal was not used to interpret this result as normal/abnormal . MPV (test code = 11.6 fL 9.5-12.9 90204-8) NRBC/100 WBC (test See_Comment [Automat ed code = 5369000749) message] The system which generated this result transmitted reference range : 0.0 - 10.0 /100 WBCs. The refer ence range was not u sed to interpret th is result as normal/abnormal . NRBC x10^3 (test code See_Comment [Auto mated = 0383020259) message] The s ystem which generated this result transmitted reference range : 10*3/?L. The reference range was not used to interpret this result as normal/abnormal . GRAN MAT (NEUT) % 52.4 % (test code = 770-8) IMM GRAN % (test code 0.60 % = 1559196795) LYMPH % (test code = 29.6 % 736-9) MONO % (test code = 14.7 % 5905-5) EOS % (test code = 1.6 % 713-8) BASO % (test code = 1.1 % 706-2) GRAN MAT x10^3(ANC) 3.31 10*3/uL 1.88-7.09 (test code = 7203173076) IMM GRAN x10^3 (test 0.04 10*3/uL 0-0.06 code = 6555118459) LYMPH x10^3 (test code 1.87 10*3/uL 1.32-3.29 = 731-0) MONO x10^3 (test code 0.93 10*3/uL 0.33-0.92 H = 742-7) EOS x10^3 (test code = 0.10 10*3/uL 0.03-0.39 711-2) BASO x10^3 (test code 0.07 10*3/uL 0.01-0.07 = 704-7) Lab Interpretation Abnormal (test code = 74000-8) [facility]:06:48 Test Item Value Reference Range Interpretation Comments MAGNESIUM (test code = 3422612309) 1.8 mg/dL 1.7-2.4 Lab Interpretation (test code = Normal 63214-4) [facility] (02484[facility] (ALB,T.PRO,BILI T,BU/BC,ALT,AST,ALK PHOS)2022-02-04 17:06:47 Test Item Value Reference Range Interpretation Comments TOTAL BILI (test code = 4722804589) 0.9 mg/dL 0.1-1.1 BILI UNCON (test code = 3699913990) 0.5 mg/dL 0.1-1.1 BILI CONJ (test code = 4517452551) 0.0 mg/dL 0-0.3 T PROTEIN (test code = 5830798698) 7.6 g/dL 6.3-8.2 ALBUMIN (test code = 6366615985) 3.7 g/dL 3.5-5 ALK PHOS (test code = 4704933134) 51 U/L 34-122 ALTv (test code = 1742-6) 37 U/L 5-35 H AST(SGOT) (test code = 2395008571) 46 U/L 13-40 H Lab Interpretation (test code = Abnormal 21577-4) [facility] METABOLIC PANEL (NA, K, CL, CO2, GLUCOSE, BUN, CREATININE, CA)2022-02-04 17:06:27 Test Item Value Reference Range Interpretation Comments NA (test code = 134 mmol/L 135-145 L 1400384197) K (test code = 3.5 mmol/L 3.5-5 8115321830) CL (test code = 101 mmol/L 98-108 0860255824) CO2 TOTAL (test code = 21 mmol/L 23-31 L 8401913207) AGAP (test code = 2-16 8462629411) BUN (test code = 7 mg/dL 7-23 6707108009) GLUCOSE (test code = 95 mg/dL 70-110 0124137295) CREATININE (test code = 0.68 mg/dL 0.5-1.04 6097043775) CALCIUM (test code = 8.5 mg/dL 8.6-10.6 L 6273332868) eGFR (test code = mL/min/1.73m2 1903392784) MICHAEL (test code = MICHAEL) Association of Glomerular Filtration Rate (GFR) and Staging of Kidney Disease* + --+ --+ ------+| GFR (mL/min/1.73 m2) ?| With Kidney Damage ?| ?Without Kidney Damage+ --------+ --------+ +| ?>90 ?| ?Stage one ?| ? Normal ?+ ---+ ---+ -------+| ?60-89 ?| ?Stage two ?| ? Decreased GFR ? + --+ --+ ------+| ?30-59 ?| ?Stage three ?| ? Stage three ? + --+ --+ ------+| ?15-29 ?| ?Stage four ? | ? Stage four ?+ ---+ ---+ -------+| ?<15 (or dialysis) ? ?| ?Stage five ? | ? Stage five ?+ ---+ ---+ -------+ *Each stage assumes the associated GFR level has been in effect for at least three months. ?Stages 1 to 5, with or without kidney disease, indicate chronic kidney disease. Notes: Determination of stages one and two (with eGFR >59mL/min/1.73 m2) requires estimation of kidney damage for at least three months as defined by structural or functional abnormalities of the kidney, manifested by either:Pathological abnormalities or Markers of kidney damage (including abnormalities in the composition of the blood or urine or abnormalities in imaging tests). Lab Interpretation Abnormal (test code = 23345-1) [facility] 17:06:27 Test Item Value Reference Range Interpretation Comments LIPASE (test code = 2173185406) 886 U/L 0-220 H Lab Interpretation (test code = Abnormal 64301-5) [facility] with [id number] 11:52:12 Test Item Value Reference Range Interpretation Comments WBC (test code = See_Comment [Automated 8178-2) message] The system which generated this result transmitted reference range : 4.30 - 11.10 10*3/?L. The reference range was not used to interpret this result as normal/abnormal . RBC (test code = See_Comment L [Automated 755-8) message] The system which generated this result transmitted reference range : 3.93 - 5.25 10*6/?L. The reference range was not used to interpret this result as normal/abnormal . HGB (test code = 11.7 g/dL 11.6-15 718-7) HCT (test code = 33.1 % 35.7-45.2 L 4544-3) MCV (test code = 84.4 fL 80.6-95.5 787-2) MCH (test code = 29.8 pg 25.9-32.8 785-6) MCHC (test code = 35.3 g/dL 31.6-35.1 H 786-4) RDW-SD (test code = 39.1 fL 39-49.9 75930-9) RDW-CV (test code = 12.9 % 12-15.5 788-0) PLT (test code = See_Comment L [Automated 777-3) message] The system which generated this result transmitted reference range : 166 - 358 10*3/?L. The reference range was not used to interpret this result as normal/abnormal . MPV (test code = 12.3 fL 9.5-12.9 24731-6) NRBC/100 WBC (test See_Comment [Automat ed code = 7367510371) message] The system which generated this result transmitted reference range : 0.0 - 10.0 /100 WBCs. The reference range was not used to interpret this result as normal/abnormal . NRBC x10^3 (test code See_Comment [Auto mated = 3034622599) message] The system which generated this result transmitted reference range : 10*3/?L. The reference range was not used to interpret this result as normal/abnormal . GRAN MAT (NEUT) % 62.8 % (test code = 770-8) IMM GRAN % (test code 0.30 % = 7226912647) LYMPH % (test code = 19.0 % 736-9) MONO % (test code = 16.3 % 5905-5) EOS % (test code = 0.9 % 713-8) BASO % (test code = 0.7 % 706-2) GRAN MAT x10^3(ANC) 5.97 10*3/uL 1.88-7.09 (test code = 0357994440) IMM GRAN x10^3 (test 0.03 10*3/uL 0-0.06 code = 9517423030) LYMPH x10^3 (test 1.81 10*3/uL 1.32-3.29 code = 731-0) MONO x10^3 (test code 1.55 10*3/uL 0.33-0.92 H = 742-7) EOS x10^3 (test code 0.09 10*3/uL 0.03-0.39 = 711-2) BASO x10^3 (test code 0.07 10*3/uL 0.01-0.07 = 704-7) PLT ESTIMATE (test Decreased Normal A code = 9317-9) DIFF COMMENTS (test Few Platelet code = 5140411103) clumps seen Lab Interpretation Abnormal (test code = 63601-2) [facility] Metabolic Panel (NA, K, CL, CO2, GLUCOSE, BUN, CREATININE, CA)2022-02-03 10:41:17 Test Item Value Reference Range Interpretation Comments NA (test code = 133 mmol/L 135-145 L 2555353348) K (test code = 3.8 mmol/L 3.5-5 7134876498) CL (test code = 102 mmol/L 98-108 3773959448) CO2 TOTAL (test code = 20 mmol/L 23-31 L 4508344397) AGAP (test code = 2-16 7516104818) BUN (test code = 11 mg/dL 7-23 9200445699) GLUCOSE (test code = 101 mg/dL 70-110 9021137643) CREATININE (test code = 0.70 mg/dL 0.5-1.04 8125823700) CALCIUM (test code = 8.4 mg/dL 8.6-10.6 L 1305183210) eGFR (test code = mL/min/1.73m2 4986811671) MICHAEL (test code = MICHAEL) Association of Glomerular Filtration Rate (GFR) and Staging of Kidney Disease* + --+ --+ ------+| GFR (mL/min/1.73 m2) ?| With Kidney Damage ?| ?Without Kidney Damage+ --------+ --------+ +| ?>90 ?| ?Stage one ?| ? Normal ?+ ---+ ---+ -------+| ?60-89 ?| ?Stage two ?| ? Decreased GFR ? + --+ --+ ------+| ?30-59 ?| ?Stage three ?| ? Stage three ? + --+ --+ ------+| ?15-29 ?| ?Stage four ? | ? Stage four ?+ ---+ ---+ -------+| ?<15 (or dialysis) ? ?| ?Stage five ? | ? Stage five ?+ ---+ ---+ -------+ *Each stage assumes the associated GFR level has been in effect for at least three months. ?Stages 1 to 5, with or without kidney disease, indicate chronic kidney disease. Notes: Determination of stages one and two (with eGFR >59mL/min/1.73 m2) requires estimation of kidney damage for at least three months as defined by structural or functional abnormalities of the kidney, manifested by either:Pathological abnormalities or Markers of kidney damage (including abnormalities in the composition of the blood or urine or abnormalities in imaging tests). Lab Interpretation Abnormal (test code = 87577-2) [facility] (00988)(TOTAL CHOLESTEROL, TRIGLYCERIDES, HDL)2022-02-03 10:41:17 Test Item Value Reference Range Interpretation Comments CHOL (test code = 174 mg/dL 120-200 5232467859) HDL (test code = 22 mg/dL See_Comment L [Automated message] 3134389584) The system [employer] generated this result transmit antonina reference range : >=50. The refer ence range was not u sed to interpret th is result as normal/abnormal . HDLC RATIO (test code = See_Comment H [Au tomated message] 0164506611) The system [employer] generated this result transmit antonina reference range : <=4.5. The refe rence range was not u sed to interpret th is result as normal/abnormal . TRIG (test code = 78 mg/dL 30-170 5751242012) LDL CHOL (test code = 136 mg/dL See_Comment [Auto mated message] 33183-9) The system [employer] generated this result transmit antonina reference range : <=160. The refe rence range was not u sed to interpret th is result as normal/abnormal . VLDL (test code = 16 mg/dL 5-60 0896597557) Lab Interpretation (test Abnormal code = 71543-7) [facility]OLIC PAN[facility] (84667)2022-02-02 23:11:47 Test Item Value Reference Range Interpretation Comments NA (test code = 135 mmol/L 135-145 4164374593) K (test code = 3.7 mmol/L 3.5-5 0797717692) CL (test code = 97 mmol/L 98-108 L 8548850690) CO2 TOTAL (test code = 19 mmol/L 23-31 L 1887037379) AGAP (test code = 2-16 H 6999346660) BUN (test code = 13 mg/dL 7-23 4609907876) GLUCOSE (test code = 101 mg/dL 70-110 1185827113) CREATININE (test code = 0.88 mg/dL 0.5-1.04 3608075060) TOTAL BILI (test code = 1.1 mg/dL 0.1-1.6 7168879315) CALCIUM (test code = 10.2 mg/dL 8.6-10.6 6881853441) T PROTEIN (test code = 9.4 g/dL 6.3-8.2 H 7669489950) ALBUMIN (test code = 4.9 g/dL 3.5-5 0708738181) ALK PHOS (test code = 73 U/L 34-122 4848360968) ALTv (test code = 44 U/L 5-35 H 1742-6) AST(SGOT) (test code = 48 U/L 13-40 H 9859951670) eGFR (test code = mL/min/1.73m2 4005763956) MICHAEL (test code = MICHAEL) Association of Glomerular Filtration Rate (GFR) and Staging of Kidney Disease* + --+ --+ ------+| GFR (mL/min/1.73 m2) ?| With Kidney Damage ?| ?Without Kidney Damage+ --------+ --------+ +| ?>90 ?| ?Stage one ?| ? Normal ?+ ---+ ---+ -------+| ?60-89 ?| ?Stage two ?| ? Decreased GFR ? + --+ --+ ------+| ?30-59 ?| ?Stage three ?| ? Stage three ? + --+ --+ ------+| ?15-29 ?| ?Stage four ? | ? Stage four ?+ ---+ ---+ -------+| ?<15 (or dialysis) ? ?| ?Stage five ? | ? Stage five ?+ ---+ ---+ -------+ *Each stage assumes the associated GFR level has been in effect for at least three months. ?Stages 1 to 5, with or without kidney disease, indicate chronic kidney disease. Notes: Determination of stages one and two (with eGFR >59mL/min/1.73 m2) requires estimation of kidney damage for at least three months as defined by structural or functional abnormalities of the kidney, manifested by either:Pathological abnormalities or Markers of kidney damage (including abnormalities in the composition of the blood or urine or abnormalities in imaging tests). Lab Interpretation Abnormal (test code = 92030-4) [facility] 23:11:47 Test Item Value Reference Range Interpretation Comments LIPASE (test code = 1633381672) 988 U/L 0-220 H Lab Interpretation (test code = Abnormal 89920-1) [facility] WITH [id number] 23:11:02 Test Item Value Reference Range Interpretation Comments WBC (test code = See_Comment [Automated 5490-2) message] The sy stem which generated this result transmitted reference range : 4.30 - 11.10 10*3/?L. The reference range was not used to interpret this result as normal/abnormal . RBC (test code = See_Comment [Automated 369-8) message] The sy stem which generated this result transmitted reference range : 3.93 - 5.25 10*6/?L. The reference range was not used to interpret this result as normal/abnormal . HGB (test code = 14.1 g/dL 11.6-15 718-7) HCT (test code = 40.4 % 35.7-45.2 4544-3) MCV (test code = 84.2 fL 80.6-95.5 787-2) MCH (test code = 29.4 pg 25.9-32.8 785-6) MCHC (test code = 34.9 g/dL 31.6-35.1 786-4) RDW-SD (test code = 38.8 fL 39-49.9 L 92773-8) RDW-CV (test code = 12.7 % 12-15.5 788-0) PLT (test code = See_Comment L [Automated 777-3) message] The sy stem which generated this result transmitted reference range : 166 - 358 10*3/ ?L. The reference r vishal was not used to interpret this result as normal/abnormal . MPV (test code = 12.9 fL 9.5-12.9 78279-0) IPF % (test code = 21.5 % 1.3-7.7 H Platelet count 1516407208) measured by fluorescence method. NRBC/100 WBC (test See_Comment [Automat ed code = 9670962470) message] The system which generated this result transmitted reference range : 0.0 - 10.0 /100 WBCs. The refer ence range was not u sed to interpret th is result as normal/abnormal . NRBC x10^3 (test code See_Comment [Auto mated = 5227078535) message] The s ystem which generated this result transmitted reference range : 10*3/?L. The reference range was not used to interpret this result as normal/abnormal . GRAN MAT (NEUT) % 66.6 % (test code = 770-8) IMM GRAN % (test code 0.30 % = 8822600776) LYMPH % (test code = 19.0 % 736-9) MONO % (test code = 13.1 % 5905-5) EOS % (test code = 0.4 % 713-8) BASO % (test code = 0.6 % 706-2) GRAN MAT x10^3(ANC) 6.17 10*3/uL 1.88-7.09 (test code = 6158407996) IMM GRAN x10^3 (test 0.03 10*3/uL 0-0.06 code = 9694526341) LYMPH x10^3 (test code 1.76 10*3/uL 1.32-3.29 = 731-0) MONO x10^3 (test code 1.22 10*3/uL 0.33-0.92 H = 742-7) EOS x10^3 (test code = 0.04 10*3/uL 0.03-0.39 711-2) BASO x10^3 (test code 0.06 10*3/uL 0.01-0.07 = 704-7) Lab Interpretation Abnormal (test code = 29896-3) [facility] [id number] 02:26:00 Test Item Value Reference Range Interpretation Comments POCT PREG (test code = 1605) negative On board controls acceptable with present C Line (test code = 3574) POCT PREG LOT # (test code = 3575) [id number] POCT PREG TEST DATE (test 05/06/2023 code = 3576) Lab Interpretation (test code = Normal 62025-5) [facility]"
[2022-05-06] MEDS ORDERED: DIAZEPAM 10 MG/2 ML INJ SYRINGE ONE (10:33)
--- NOTE | 2022-05-06 11:39 | RAD REPORT ---
EXAM DESCRIPTION: MRI - Lumbar Spine Wo Con - 05/06/2022 11:29 am CLINICAL HISTORY: Arm numbness COMPARISON: None. TECHNIQUE: Sagittal T1, T2 and STIR weighted sequences were obtained. Axial T1 and T2 sequences were obtained through the lumbar disc levels. FINDINGS: L1-2, L2-3, L3-4, L4-5 and L5-S1 are unremarkable. No significant disc bulge. No disc herniation. Spinal stenosis is not present. Neural foramina are patent. Red marrow reconversion is suspected within the vertebra. 18 millimeter cystic mass is present within the subcutaneous tissues of the back at the L1-2 level IMPRESSION: Red marrow reconversion is a nonspecific finding but can be seen with smoking, exercise and anemia. 18 millimeter cystic mass is present within the subcutaneous tissues of the back at the L1-2 level Otherwise unremarkable MRI lumbar spine
--- NOTE | 2022-05-06 12:21 | RAD REPORT ---
EXAM DESCRIPTION: MRI - Thoracic Spine Wo Contr - 05/06/2022 11:54 am CLINICAL HISTORY: Arm numbness COMPARISON: None. TECHNIQUE: Sagittal T1 weighted, T2 weighted and T2 STIR weighted sequences were obtained. Axial T2 weighted images were obtained through each disc level. FINDINGS: The spinal cord is normal caliber and signal. Small left paracentral disc herniation T7-8 Small left posterior-lateral disc herniation at T10-11 Neural foramina are patent. No spinal stenosis IMPRESSION: Small left paracentral disc herniation T7-8 Small left posterolateral disc herniation T10-11
--- NOTE | 2022-05-06 12:26 | RAD REPORT ---
EXAM DESCRIPTION: MRI - C Spine Wo Cont - 05/06/2022 11:30 am CLINICAL HISTORY: Arm numbness COMPARISON: None TECHNIQUE: Magnetic resonance imaging of the cervical spine was obtained. Sagittal and axial images completed. FINDINGS: Patchy increased signal with is present within the spinal cord which extends from C1 to C2 -3. It measures up to 7 millimeters AP diameter at the C1 level. Minimal spondylosis involves the cervical spine. No significant bulging discs. Disc herniation not se en. Spinal stenosis is not present Neural foramina are patent IMPRESSION: Patchy increased signal within the upper spinal cord may represent a demyelinating proc ess such as multiple sclerosis and should be correlated clinically. A nonemergent MRI with contrast i s recommended to determine if there is abnormal enhancement to suggest an active process
--- NOTE | 2022-05-06 13:12 | EDPHYS ---
Physician Documentation [facility] Name: Sarah Barbour Age: 36 yrs Sex: Female : 1985 Arrival Date: 05/06/2022 Time: 08:24 Bed 4 Private MD: Calvin [facility] ED Physician Lazaro Kang HPI: 05/06 11:29 This 36 yrs old Black Female presents to ER via Ambulatory with complaints of Numbness kdr Of Arm. 11:30 For the past week and a half the patient's had numbness and tingling involving on the kdr left side of her body including left upper and lower extremity with more upper than lower affected. She states initially she just had some tingling in her fingertips but then that has progressed to generalized paresthesias in both upper and lower extremities on the left side. She not had this before. She denies any trauma or any unusual pain or discomfort in her neck. She is not toxic appearing and she was able to ambulate to the room on her own.. Onset: The symptoms/episode began/occurred gradually, 1.5 week(s) ago, and became worse Patient became more concerned the last 2 days.. Severity of symptoms: At their worst the symptoms were mild in the emergency department the symptoms are unchanged. The patient has not experienced similar symptoms in the past. The patient has not recently seen a physician. 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 - Social history:: Smoking status: Patient denies any tobacco usage or history of. ROS: 11:30 Constitutional: Negative for fever, chills, and weight loss, Eyes: Negative for injury, kdr pain, redness, and discharge, Neck: Negative for injury, pain, and swelling, Cardiovascular: Negative for chest pain, palpitations, and edema, Respiratory: Negative for shortness of breath, cough, wheezing, and pleuritic chest pain, Abdomen/GI: Negative for abdominal pain, nausea, vomiting, diarrhea, and constipation, Back: Negative for injury and pain, : Negative for injury, bleeding, discharge, and swelling, MS/Extremity: Negative for injury and deformity, Skin: Negative for injury, rash, and discoloration, Psych: Negative for depression, anxiety, suicide ideation, homicidal ideation, and hallucinations. 11:30 Neuro: Positive for weakness. Exam: 11:30 Constitutional: This is a well developed, well nourished patient who is awake, alert, kdr and in no acute distress. Head/Face: Normocephalic, atraumatic. Neck: Trachea midline, no thyromegaly or masses palpated, and no cervical lymphadenopathy. Supple, full range of motion without nuchal rigidity, or vertebral point tenderness. No Meningismus. Chest/axilla: Normal chest wall appearance and motion. Nontender with no deformity. No lesions are appreciated. Cardiovascular: Regular rate and rhythm with a normal S1 and S2. No gallops, murmurs, or rubs. Normal PMI, no JVD. No pulse deficits. Respiratory: Lungs have equal breath sounds bilaterally, clear to auscultation and percussion. No rales, rhonchi or wheezes noted. No increased work of breathing, no retractions or nasal flaring. Abdomen/GI: Soft, non-tender, with normal bowel sounds. No distension or tympany. No guarding or rebound. No evidence of tenderness throughout. Back: No spinal tenderness. No costovertebral tenderness. Full range of motion. Skin: Warm, dry with normal turgor. Normal color with no rashes, no lesions, and no evidence of cellulitis. MS/ Extremity: Pulses equal, no cyanosis. Neurovascular intact. Full, normal range of motion. Psych: Awake, alert, with orientation to person, place and time. Behavior, mood, and affect are within normal limits. 11:30 Neuro: Orientation: is normal, Mentation: is normal, Memory: is normal, Cranial nerves: grossly normal, Cerebellar function: is grossly normal based on the patient's age, Motor: moves all fours, strength is 5/5 in all extremities. Vital Signs: 08:47 BP 131 / 92; Pulse 91; Resp 18 S; Pulse Ox 100% on R/A; Weight 81.65 kg; Height 5 ft. 5 iw in. (165.10 cm); 09:34 BP 118 / 58; Pulse 89; Resp 16; Pulse Ox 100% on R/A; jd3 12:50 BP 122 / 96; Pulse 85; Resp 15; Pulse Ox 100% on R/A; jd3 08:47 Body Mass Index 29.95 (81.65 kg, 165.10 cm) iw MDM: 13:12 Patient medically screened. kdr 14:31 Data reviewed: vital signs, nurses notes, lab test result(s), radiologic studies. kdr Counseling: I had a detailed discussion with the patient and/or guardian regarding: the historical points, exam findings, and any diagnostic results supporting the discharge/admit diagnosis, radiology results, the need for outpatient follow up. Physician consultation: Garcia Simpson DO. Physician consultation: Chi Stone MD regarding and will see patient. Admission orders: after a detailed discussion of the patient's condition and case, the admit orders are written by me. 14:31 ED course: I reviewed the case with Dr. Stone. He recommended the outpatient work-up kdr is communicated to the patient. I also told the patient I would contact Dr. Simpson. He did reach back out to me at approximately 1430. I informed him of the findings on MRI and the need for prompt follow-up. He indicated that the patient had already been to the office and had set of appointment for later this week or first of next week. Patient was otherwise without evidence of acute disease or need for acute intervention. She ambulated out of the department without any evidence of restriction of motion or strength in her lower extremities. 05/06 09:12 Order name: C Spine Wo Cont; Complete Time: 12:46 EDMS 05/06 09:12 Order name: Lumbar Spine Wo Con; Complete Time: 12:13 EDMS 05/06 09:12 Order name: Thoracic Spine Wo Contr; Complete Time: 12:46 EDMS Administered Medications: 10:47 Not Given (Other Intervention Used): Valium (diazepam) 5 mg PO once jd3 10:47 Drug: Valium (diazepam) 5 mg Route: IM; Site: right deltoid; jd3 11:40 Follow up: Response: No adverse reaction jd3 Disposition Summary: 05/06/22 13:12 Discharge Ordered Location: Home kdr Problem: new kdr Symptoms: are unchanged kdr Condition: Stable kdr Diagnosis - Paresthesia of skin kdr - Weakness kdr Followup: kdr - With: Simpson, Garcia, DO - When: 2 - 3 days - Reason: If symptoms return, Further diagnostic work-up, Recheck today's complaints, Continuance of care, Re-evaluation by your physician Followup: kdr - With: Chi Stone MD - When: 1 - 2 days - Reason: If symptoms return, Further diagnostic work-up, Recheck today's complaints, Continuance of care, Re-evaluation by your physician Discharge Instructions: - Discharge Summary Sheet kdr - Weakness, Bupt-wz-Pyii kdr - Paresthesia, Sabo-in-Jpnb kdr Forms: - Medication Reconciliation Form kdr - Thank You Letter kdr - Work release form jd3 Signatures: Dispatcher [employer] Lazaro Astudillo MD MD kdr Kristen Andrade RN RN iw Nino Cagle RN RN jd3
--- NOTE | 2022-05-06 13:12 | ER ---
Nurse's Notes [facility] Name: Sarah Barbour Age: 36 yrs Sex: Female : 1985 Arrival Date: 05/06/2022 Time: 08:24 Bed 4 Private MD: Garcia Simpson Diagnosis: Paresthesia of skin;Weakness Presentation: 05/06 08:42 Chief complaint: Patient states: numbness and tingling left arm X a week and half , iw can't feel her left hand, has gotten worse over past 2 days, also has muscle weakness in right arm and leg, recently got over pancreatitis and her PCP told her that might be the problem but her symptoms worsened so he told her to come to ER. Coronavirus screen: At this time, the client does not indicate any symptoms associated with coronavirus-19. Ebola Screen: Patient negative for fever greater than or equal to 101.5 degrees Fahrenheit, and additional compatible Ebola Virus Disease symptoms Patient denies exposure to infectious person. Patient denies travel to an Ebola-affected area in the 21 days before illness onset. No symptoms or risks identified at this time. Initial Sepsis Screen: Does the patient meet any 2 criteria? No. Patient's initial sepsis screen is negative. Does the patient have a suspected source of infection? No. Patient's initial sepsis screen is negative. Risk Assessment: Do you want to hurt yourself or someone else? Patient reports no desire to harm self or others. 08:42 Method Of Arrival: Ambulatory iw 08:42 Acuity: SPARKLE 3 iw 08:48 Onset of symptoms was April 29, 2022. 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 - Social history:: Smoking status: Patient denies any tobacco usage or history of. Screenin:48 Abuse screen: Denies threats or abuse. Nutritional screening: No deficits noted. jd3 Tuberculosis screening: No symptoms or risk factors identified. Fall Risk Ambulatory Aid- None/Bed Rest/Nurse Assist (0 pts). Gait- Normal/Bed Rest/Wheelchair (0 pts) Mental Status- Oriented to own ability (0 pts). Total Gutierrez Fall Scale indicates No Risk (0-24 pts). Assessment: 08:45 General: Appears in no apparent distress. comfortable, Behavior is calm, cooperative, jd3 appropriate for age. Pain: Denies pain. 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 Gait is steady, Speech is normal, Facial symmetry appears normal, Pupils are PERRLA, Intact Reports numbness in right arm, left arm, right leg and left leg since X 1 week weakness in left arm Denies blurred vision dizziness, difficulty swallowing, headache photophobia diplopia. Cardiovascular: Heart tones S1 S2 present Capillary refill < 3 seconds Patient's skin is warm and dry. Respiratory: Airway is patent Respiratory effort is even, unlabored, Respiratory pattern is regular, symmetrical, Breath sounds are clear bilaterally. Denies cough, shortness of breath. GI: No signs and/or symptoms were reported involving the gastrointestinal system. Patient currently denies diarrhea, nausea, vomiting. : No signs and/or symptoms were reported regarding the genitourinary system. EENT: No signs and/or symptoms were reported regarding the EENT system. Derm: Skin is intact, Skin is dry, Skin is normal, Skin temperature is warm. Musculoskeletal: Circulation, motion, and sensation intact. Range of motion: intact in all extremities. 09:34 Reassessment: Patient appears in no apparent distress at this time. No changes from jd3 previously documented assessment. Patient and/or family updated on plan of care and expected duration. Pain level reassessed. Patient is alert, oriented x 3, equal unlabored respirations, skin warm/dry/pink. awaiting MRI. 10:07 Reassessment: pt to MRI. jd3 11:56 Reassessment: Patient appears in no apparent distress at this time. Patient and/or jd3 family updated on plan of care and expected duration. Pain level reassessed. Patient is alert, oriented x 3, equal unlabored respirations, skin warm/dry/pink. back from MRI. pt resting in bed. 12:49 Reassessment: Patient appears in no apparent distress at this time. Patient and/or jd3 family updated on plan of care and expected duration. Pain level reassessed. Patient is alert, oriented x 3, equal unlabored respirations, skin warm/dry/pink. awaiting MRI results. 13:29 Reassessment: Patient appears in no apparent distress at this time. Patient and/or jd3 family updated on plan of care and expected duration. Pain level reassessed. Patient is alert, oriented x 3, equal unlabored respirations, skin warm/dry/pink. Vital Signs: 08:47 BP 131 / 92; Pulse 91; Resp 18 S; Pulse Ox 100% on R/A; Weight 81.65 kg; Height 5 ft. 5 iw in. (165.10 cm); 09:34 BP 118 / 58; Pulse 89; Resp 16; Pulse Ox 100% on R/A; jd3 12:50 BP 122 / 96; Pulse 85; Resp 15; Pulse Ox 100% on R/A; jd3 08:47 Body Mass Index 29.95 (81.65 kg, 165.10 cm) iw ED Course: 08:24 Patient arrived in ED. mr 08:24 Garcia Simpson DO is Private Physician. mr 08:31 Lazaro Kang MD is Attending Physician. kdr 08:33 Nino Cagle RN is Primary Nurse. jd3 08:44 Triage completed. iw 08:46 Arm band placed on. iw 08:47 Patient has correct armband on for positive identification. Bed in low position. Call jd3 light in reach. Side rails up X 1. Pulse ox on. NIBP on. Warm blanket given. 11:30 C Spine Wo Cont In Process Unspecified. EDMS 11:30 Lumbar Spine Wo Con In Process Unspecified. EDMS 11:56 Thoracic Spine Wo Contr In Process Unspecified. EDMS 13:11 Garcia Simpson DO is Referral Physician. kdr 13:11 Chi Stone MD is Referral Physician. kdr 13:29 No provider procedures requiring assistance completed. Patient did not have IV access jd3 during this emergency room visit. Administered Medications: 10:47 Not Given (Other Intervention Used): Valium (diazepam) 5 mg PO once jd3 10:47 Drug: Valium (diazepam) 5 mg Route: IM; Site: right deltoid; jd3 11:40 Follow up: Response: No adverse reaction jd3 Medication: 08:48 VIS not applicable for this client. jd3 Outcome: 13:12 Discharge ordered by . kdr 13:29 Discharged to home ambulatory. jd3 13:29 Condition: stable 13:29 Discharge instructions given to patient, Instructed on discharge instructions, follow up and referral plans. Demonstrated understanding of instructions, follow-up care. 13:30 Patient left the ED. jd3 Signatures: Dispatcher [employer] EDMS Lazaro Kang MD MD [facility] Samantha mr Kristen Andrade RN RN Nino Moreno RN RN jd3 Corrections: (The following items were deleted from the chart) 10:08 09:34 Reassessment: Patient appears in no apparent distress at this time. No changes jd3 from previously documented assessment. Patient and/or family updated on plan of care and expected duration. Pain level reassessed. Patient is alert, oriented x 3, equal unlabored respirations, skin warm/dry/pink. awaiting CT jd3 10:08 09:34 BP 118 / 48; Pulse 89bpm; Resp 16bpm; Pulse Ox 100% RA; jd3 jd3
[2022-05-06 13:35] VITALS: O2SAT 100
[2022-05-06 13:38] VITALS: BP 122/96
== END 2022-05-06 13:30 | disposition home or self-care (01) ==
LOC: ER 08:19
DX: R20.2 Paresthesia of skin (principal); R53.1 Weakness
CPT/HCPCS: 72141; 72146; 72148; 96372; 99283; J3360